=== PATIENT | female | born 1980 | race Caucasian/White ===

== ENCOUNTER 2019-08-04 10:42 | Day surgery (SDC) | payer BC ==
[2019-08-01 17:03] VITALS: BMI 41.3
[2019-08-04 11:25] LABS: BASO % 0.3 % (0-2.0); EOS % 1.6 % (0-4.5); HEMATOCRIT 33.4 % (32.4-45.2); HEMOGLOBIN 11.1 GM/dL (10.7-15.3); LYMPH % 22.5 % (8-40); MCHC 33.1 g/dl (32.0-36.0); MEAN CELL VOLUME 87.5 fl (80-96); MEAN PLT VOLUME 9.3 fl (7.5-11.1); NEUT % 68.6 % (42.8-82.8); PLATELET COUNT 208 K/MM3 (134-434); RBC 3.82 M/mm3 (3.60-5.2); RDW 15.1 % (11.6-15.6); WHITE BLOOD COUNT 6.8 K/mm3 (4.0-10.0)
[2019-08-04] MEDS ORDERED: KETOROLAC TROMETHAMINE 30 MG/1 ML VIAL ONE (12:13)
[2019-08-04] MEDS ORDERED: PROPOFOL 20 ML ONE (12:13)
[2019-08-04] MEDS ORDERED: MIDAZOLAM HCL 2 MG/2 ML SINGLE DOSE VIAL ONE (12:13)
[2019-08-04] MEDS ORDERED: DEXAMETHASONE SOD PHOSPHATE 4 MG/1 ML VIAL ONE (12:13)
[2019-08-04 12:26] LABS: ALBUMIN 2.9 g/dl (3.4-5.0); BILIRUBIN,TOTAL 0.3 mg/dL (0.2-1); BLOOD UREA NITROGEN 8.5 mg/dL (7-18); CREATININE 0.4 mg/dL (0.55-1.3); POTASSIUM 4.4 mmol/L (3.5-5.1); TOT PROT 6.5 g/dl (6.4-8.2)
[2019-08-04] MEDS ORDERED: ACETAMINOPHEN 325 MG TABLET (FP) PO PRN (13:27)
--- NOTE | 2019-08-04 13:27 | HP ---
History & Physical Update - History History: No Change - Physical Physical: No Change - Assessment Assessment: No Change - Plan Plan: No Change (No change in HP)
--- NOTE | 2019-08-04 14:08 | OP ---
Operative Note - Note: Operative Date: 08/04/19 Pre-Operative Diagnosis: incompetent cervix Operation: Cervical cerclage at 17 week Post-Operative Diagnosis: Same as Pre-op Surgeon: Charlotte Vergara Anesthesia: General Estimated Blood Loss (mls): 3 Operative Report Dictated: Yes
[2019-08-04 17:47] VITALS: BP 101/56; PULSE 84; TEMP 98.8
--- NOTE | 2019-08-25 15:49 | OP ---
DATE OF OPERATION: 08/04/2019 PREOPERATIVE DIAGNOSIS: Incompetent cervix at 17 weeks. OPERATION: Cervical cerclage at 17 weeks. POSTOPERATIVE DIAGNOSIS: Incompetent cervix at 17 weeks. SURGEON: Charlotte Vergara MD ANESTHESIA: General. ESTIMATED BLOOD LOSS: mL DESCRIPTION OF PROCEDURE: placed in lithotomy. Prepped usual sterile fashion. A time-out was performed in accordance with hospital regulation. Speculum was placed in the vagina. Anterior lip of the cervix was then grasped with a polyp forceps, 0 Mersilene suture was then placed at 12 o'clock, 9 o'clock, 6 o'clock, and 3 o'clock. The Mersilene tape was then used to tie leaving a slight opening of the cervix. After approximately 5 ties were done, all instruments were then removed. Patient had tolerated procedure well and was taken to recovery room in stable condition. Estimated blood loss was 3 mL. CHARLOTTE VERGARA M.D. SELVIN/[id number]
== END 2019-08-04 18:20 | disposition home or self-care (01) ==
LOC: JASU-SURG 10:42
PROVIDERS: ATTEND Obstetrics & Gynecology
PROC: 0UVC7ZZ Restriction of Cervix, Via Natural or Artificial Opening (ICD-10-PCS; principal; 2019-08-04 13:45)
DX: O34.32 Maternal care for cervical incompetence, second trimester (principal)
CPT/HCPCS: 36415; 80053; 84702; 85025; 86850; 86900; 86901; 94760

== ENCOUNTER 2019-12-26 06:15 | Inpatient (IN) | payer BC ==
[2019-12-26] MEDS ORDERED: CITRIC ACID/SODIUM CITRATE 30 ML UNIT-DOSE CUP PO ONE (06:30)
[2019-12-26] MEDS ORDERED: ELECTROLYTE-148 SOLN 1,000 ML IV SCH (06:30)
[2019-12-26] MEDS ORDERED: ELECTROLYTE-148 SOLN 1,000 ML IV ONE (06:30)
[2019-12-26 07:17] VITALS: BMI 46.3
[2019-12-26] MEDS ORDERED: SODIUM CHLORIDE 0.9% P/F 10 ML VIAL IJ ONE ×2 (07:22→09:01)
[2019-12-26] MEDS ORDERED: PROPOFOL 20 ML ONE ×2 (07:22)
[2019-12-26] MEDS ORDERED: ceFAZolin SODIUM 1 GM VIAL ONE ×2 (07:22→07:23)
[2019-12-26] MEDS ORDERED: ePHEDrine SULFATE 50 MG/1 ML AMPULE ONE (07:22)
[2019-12-26] MEDS ORDERED: OXYTOCIN 10 UNITS/ML VIAL ONE (07:23)
[2019-12-26] MEDS ORDERED: ROCURONIUM BROMIDE 50 MG/5 ML VIAL ONE (07:24)
[2019-12-26] MEDS ORDERED: SUCCINYLCHOLINE CHLORIDE 200 MG/10 ML SYRINGE ONE (07:24)
[2019-12-26 07:25] LABS: BASO % 0.4 % (0-2.0); EOS % 0.5 % (0-4.5); HEMATOCRIT 29.3 % (32.4-45.2); HEMOGLOBIN 9.4 GM/dL (10.7-15.3); LYMPH % 16.1 % (8-40); MCH 25.6 pg (25.7-33.7); MCHC 32.1 g/dl (32.0-36.0); MEAN CELL VOLUME 79.9 fl (80-96); MONO % 6.4 % (3.8-10.2); NEUT % 76.6 % (42.8-82.8); PLATELET COUNT 203 K/MM3 (134-434); RBC 3.66 M/mm3 (3.60-5.2); RDW 15.6 % (11.6-15.6); WHITE BLOOD COUNT 8.3 K/mm3 (4.0-10.0)
[2019-12-26] MEDS ORDERED: morphine SULFATE/PF 0.5 MG/ML (2cc Syringe - QUVA) ONE (07:29)
[2019-12-26] MEDS ORDERED: ONDANSETRON 4 MG/2 ML VIAL IVPUSH PRN (07:38)
[2019-12-26 07:44] LABS: INR 0.97 (0.83-1.09); PROTHROMBIN TIME (PATIENT) 11.5 SEC (9.7-13.0)
[2019-12-26 07:46] LABS: ACTIVATED PTT 21.5 SECONDS (25.2-36.5)
[2019-12-26 07:51] LABS: BLOOD UREA NITROGEN 8.2 mg/dL (7-18); CALCIUM 8.4 mg/dL (8.5-10.1); CREATININE 0.5 mg/dL (0.55-1.3); POTASSIUM 4.1 mmol/L (3.5-5.1)
[2019-12-26] MEDS ORDERED: OXYTOCIN 20 UNITS in 0.9% NS 40 UNIT/2,000 ML INFUS.BAG IV ONE (07:51)
[2019-12-26] MEDS ORDERED: METHYLERGONOVINE MALEATE 0.2 MG/1 ML AMP IM PRN (08:10)
[2019-12-26] MEDS ORDERED: SENNOSIDES/DOCUSATE COMBO (SENNA PLUS) TABLET (UD) PO PRN (08:10)
[2019-12-26] MEDS ORDERED: IBUPROFEN 600 MG TABLET (FP) PO PRN (08:10)
[2019-12-26] MEDS ORDERED: PHENYLEPHRINE HCL 10 MG/1 ML SINGLE DOSE VIAL ONE (09:01)
[2019-12-26] MEDS ORDERED: KETOROLAC TROMETHAMINE 30 MG/1 ML VIAL ONE (09:01)
--- NOTE | 2019-12-26 12:36 | HP ---
Past Medical History - Primary Care Physician PCP:: Charlotte Vergara - Admission Chief Complaint: Previous Section. Voluntary sterilization History of Present Illness: 39 yo EDC EGA 39 weeks with hx of cerclage and previous CS for repeat CS History Source: Patient Limitations to Obtaining History: No Limitations - Past Medical History ...: 5 ...Para: 1 ...Term: 0 ...: 1 ...Spon : 1 ...Induced : 2 ...Multiple Gestation: 0 ...LMP: 04/02/19 ... Weeks Gestation by Dates: 38.2 ...EDC by Dates: 01/07/20 - Past Surgical History Past Surgical History: Yes: (Cervical cerclage) Hx Myomectomy: No Hx Transabdominal Cerclage: No - Smoking History Smoking history: Former smoker Have you smoked in the past 12 months: No If you are a former smoker, when did you quit?: march 2019 - Alcohol/Substance Use Hx Alcohol Use: No History of Substance Use: reports: None - Social History Usual Living Arrangement: Yes: With Spouse Do you think of yourself as: Straight/Heterosexual History of Recent Travel: No Home Medications - Allergies Allergies/Adverse Reactions: Allergies Allergy/AdvReac Type Severity Reaction Status Date / Time No Known Drug Allergies Allergy Verified 06/11/14 12:15 - Home Medications Home Medications: Ambulatory Orders Pnv 29-1 Tablet 1 tab PO DAILY 12/26/19 Ibuprofen [Motrin -] 600 mg PO QID #28 tablet 12/28/19 Review of Systems - Review of Systems Constitutional: reports: No Symptoms Eyes: reports: No Symptoms HENT: reports: No Symptoms Neck: reports: No Symptoms Cardiovascular: reports: No Symptoms Respiratory: reports: No Symptoms Gastrointestinal: reports: No Symptoms Genitourinary: reports: No Symptoms Breasts: reports: No Symptoms Reported Musculoskeletal: reports: No Symptoms Integumentary: reports: No Symptoms Neurological: reports: No Symptoms Endocrine: reports: No Symptoms Hematology/Lymphatic: reports: No Symptoms Psychiatric: reports: No Symptoms Physical Exam - Maternity Vital Signs: Vital Signs Temperature 97.6 F 12/26/19 11:52 Pulse Rate 66 12/26/19 11:52 Respiratory Rate 12/26/19 12:17 Blood Pressure 114/71 12/26/19 11:52 O2 Sat by Pulse Oximetry (%) 100 12/26/19 11:15 Constitutional: Yes: Well Nourished, No Distress, Obese Cardiovascular: Yes: WNL Lungs: Clear to auscultation Breast(s): Yes: WNL - Abdominal Exam/OB Fundal Height: 40 Number of Fetuses: Single Presentation: Vertex Contractions: No Category: I Decelerations: None - Vaginal Exam/OB Dilatation (cm): closed Effacement (%): long Amniotic Membrane Status: Intact Presentation: Vertex/Position Station: -2 - Physical Exam Musculoskeletal: Yes: WNL Extremities: Yes: WNL - Labs Lab Results: CBC, BMP 12/26/19 07:05 12/26/19 07:05 Hemorrhage Risk Assessment - Risk Factors Medium Risk Factors: Yes: Prior , uterine surgery,or multiple laparotomies Risk Score: 1 Risk Level: Medium Risk Problem List - Problems (1) Previous delivery, antepartum Problems reviewed: Yes Code(s): O34.219 - MATERNAL CARE FOR UNSP TYPE SCAR FROM PREVIOUS DEL (2) Obesity affecting in third trimester Problems reviewed: Yes Code(s): O99.213 - OBESITY COMPLICATING , THIRD TRIMESTER (3) Cervical incompetence affecting management of in third trimester, antepartum Problems reviewed: Yes Code(s): O34.33 - MATERNAL CARE FOR CERVICAL INCOMPETENCE, THIRD TRIMESTER (4) 39 weeks gestation of Problems reviewed: Yes Code(s): Z3A.39 - 39 WEEKS GESTATION OF Assessment/Plan IUP at 39 week previous Section incompetent cervix Voluntary Sterilization Plan repeat Section bilateral salpingectomy removal of cerclage
[2019-12-26] MEDS: IBUPROFEN 800 MG/8 ML IJ IVPB PRN (15:59)
[2019-12-27] MEDS: IBUPROFEN 800 MG/8 ML IJ IVPB PRN (02:07)
[2019-12-27] MEDS ORDERED: BISACODYL 10 MG SUPP.RECT RC PRN (08:10)
--- NOTE | 2019-12-27 09:10 | OP ---
Operative Note - Note: Operative Date: 12/26/19 Pre-Operative Diagnosis: Previous Section. Voluntary sterilization. cervical incompence. iup at 39 weeks Operation: Repeat low Transverse Section. Bilateral salpingectomy. Cerclage removal. IUP at 39 week Findings: Live male infant Post-Operative Diagnosis: Same as Pre-op Surgeon: Charlotte Vergara Restaurant Kitchen And Service Manager: Antonio Ford Anesthesia: Spinal Estimated Blood Loss (mls): 600 Operative Report Dictated: Yes
[2019-12-27 09:37] LABS: BASO % 0.4 % (0-2.0); EOS % 0.9 % (0-4.5); HEMATOCRIT 30.4 % (32.4-45.2); HEMOGLOBIN 9.5 GM/dL (10.7-15.3); LYMPH % 16.1 % (8-40); MCH 25.4 pg (25.7-33.7); MCHC 31.3 g/dl (32.0-36.0); MEAN PLT VOLUME 10.1 fl (7.5-11.1); MONO % 5.9 % (3.8-10.2); NEUT % 76.7 % (42.8-82.8); PLATELET COUNT 188 K/MM3 (134-434); RBC 3.75 M/mm3 (3.60-5.2); RDW 15.7 % (11.6-15.6); WHITE BLOOD COUNT 8.6 K/mm3 (4.0-10.0)
[2019-12-27] MEDS ORDERED: DIPHTH,PERTUSS(ACELL),TET 0.5 ML DISP.SYRIN IM ONE (10:00)
[2019-12-27] MEDS: PRENATAL VITAMINS W/ FOLIC ACID TABLET (FP) PO SCH (10:56)
[2019-12-27] MEDS: SIMETHICONE 80 MG TAB.CHEW (FP) PO PRN ×3 (12:30→21:37)
[2019-12-27] MEDS: oxyCODONE HCL 5 MG TABLET PO PRN ×3 (12:30→21:38)
[2019-12-27] MEDS: ACETAMINOPHEN 325 MG TABLET (FP) PO PRN (16:53)
[2019-12-27] MEDS: OXYTOCIN 20 UNITS in 0.9% NS 20 UNIT/1,000 ML INFUS.BAG IV SCH (18:26)
--- NOTE | 2019-12-27 21:32 | PN ---
Progress Note (short form) - Note Progress Note: Anesthesia Post Op Note Pt s/p c/section under spinal Pt awake alert denies n/v, no puritis, ambulating well, no urinary retention reports good pain control VSS no apparent anesthesia complications Kassie New.
[2019-12-27] MEDS: IBUPROFEN 600 MG TABLET (FP) PO PRN (21:38)
--- NOTE | 2019-12-27 22:24 | PN ---
Progress Note (SOAP) - Subjective Chief Complaint: Pt doing well - Current Medications Current Medications: Active Medications Acetaminophen (Tylenol -) 650 mg PO Q4H PRN PRN Reason: PAIN LEVEL 1-5 Last Admin: 12/27/19 16:53 Dose: 650 mg Bisacodyl (Dulcolax Suppository -) 10 mg RC PRN PRN PRN Reason: CONSTIPATION Diphenhydramine HCl (Benadryl Injection -) 25 mg IVPUSH Q4H PRN PRN Reason: Pruritis Last Admin: 12/26/19 15:55 Dose: 25 mg Oxytocin/Sodium Chloride (Normal Saline+20 Units Oxytocin -) 20 unit in 1,000 mls @ 125 mls/hr IV ASDIR JUSTIN Last Admin: 12/27/19 18:26 Dose: Not Given Ibuprofen (Motrin -) 600 mg PO Q4H PRN PRN Reason: PAIN LEVEL 1-5 Last Admin: 12/27/19 21:38 Dose: 600 mg Ibuprofen (Caldolor Injection -) 800 mg IVPB Q8H PRN PRN Reason: FEVER Last Admin: 12/27/19 02:07 Dose: 800 mg Methylergonovine Maleate (Methergine Injection -) 0.2 mg IM Q4H PRN PRN Reason: Excessive Bleeding (L&D) Ondansetron HCl (Zofran Injection) 4 mg IVPUSH Q4H PRN PRN Reason: NAUSEA Oxycodone HCl (Roxicodone -) 5 mg PO Q4H PRN PRN Reason: PAIN LEVEL 4 - 6 Last Admin: 12/27/19 21:38 Dose: 5 mg Oxycodone HCl (Roxicodone -) 10 mg PO Q4H PRN PRN Reason: PAIN LEVEL 7 - 10 Last Admin: 12/27/19 16:42 Dose: 10 mg Multivit/Folic Acid/Iron ( Vitamins (Sjr) -) 1 tab PO DAILY JUSTIN Last Admin: 12/27/19 10:56 Dose: 1 tab Senna/Docusate Sodium (Pericolace -) 2 tablet PO HS PRN PRN Reason: CONSTIPATION Last Admin: 12/27/19 21:41 Dose: 2 tablet Simethicone (Mylicon -) 80 mg PO Q4H PRN PRN Reason: GAS Last Admin: 12/27/19 21:37 Dose: 80 mg - Objective Vital Signs: Vital Signs Temperature 97.5 F L 12/27/19 20:29 Pulse Rate 95 H 12/27/19 20:29 Respiratory Rate 20 12/27/19 20:29 Blood Pressure 109/58 L 12/27/19 20:29 O2 Sat by Pulse Oximetry (%) 100 12/26/19 11:15 Constitutional: Yes: Well Nourished, No Distress ....Post : Yes: Uterus firm, Uterus non-tender Musculoskeletal: Yes: WNL Extremities: Yes: WNL Edema: No Wound/Incision: Yes: Clean/Dry, Steri Strips Neurological: Yes: WNL, Alert, Oriented Labs Lab Results: CBCD WBC 8.6 K/mm3 (4.0-10.0) 12/27/19 08:15 RBC 3.75 M/mm3 (3.60-5.2) 12/27/19 08:15 Hgb 9.5 GM/dL (10.7-15.3) L 12/27/19 08:15 Hct 30.4 % (32.4-45.2) L 12/27/19 08:15 MCV 81.0 fl (80-96) 12/27/19 08:15 MCHC 31.3 g/dl (32.0-36.0) L 12/27/19 08:15 RDW 15.7 % (11.6-15.6) H 12/27/19 08:15 Plt Count 188 K/MM3 (134-434) 12/27/19 08:15 MPV 10.1 fl (7.5-11.1) 12/27/19 08:15 CMP Sodium 138 mmol/L (136-145) 12/26/19 07:05 Potassium 4.1 mmol/L (3.5-5.1) 12/26/19 07:05 Chloride 108 mmol/L (98-107) H 12/26/19 07:05 Carbon Dioxide 24 mmol/L (21-32) 12/26/19 07:05 Anion Gap 7 MMOL/L (8-16) L 12/26/19 07:05 BUN 8.2 mg/dL (7-18) 12/26/19 07:05 Creatinine 0.5 mg/dL (0.55-1.3) L 12/26/19 07:05 Random Glucose 77 mg/dL (74-106) 12/26/19 07:05 Calcium 8.4 mg/dL (8.5-10.1) L 12/26/19 07:05 Problem List - Problems (1) Previous delivery, antepartum Problems reviewed: Yes Code(s): O34.219 - MATERNAL CARE FOR UNSP TYPE SCAR FROM PREVIOUS DEL Assessment/Plan POD 1 Plan continue present management
[2019-12-28] MEDS: IBUPROFEN 600 MG TABLET (FP) PO PRN ×2 (05:33→15:08)
[2019-12-28] MEDS: oxyCODONE HCL 5 MG TABLET PO PRN (05:33)
[2019-12-28] MEDS: SIMETHICONE 80 MG TAB.CHEW (FP) PO PRN ×2 (05:33→15:08)
[2019-12-28] MEDS: PRENATAL VITAMINS W/ FOLIC ACID TABLET (FP) PO SCH (10:22)
[2019-12-28] MEDS: OXYTOCIN 20 UNITS in 0.9% NS 20 UNIT/1,000 ML INFUS.BAG IV SCH (15:02)
[2019-12-28] MEDS: ACETAMINOPHEN 325 MG TABLET (FP) PO PRN (15:08)
--- NOTE | 2019-12-28 23:53 | PN ---
Progress Note (SOAP) - Subjective Chief Complaint: Pt doing well - Current Medications Current Medications: Active Medications Acetaminophen (Tylenol -) 650 mg PO Q4H PRN PRN Reason: PAIN LEVEL 1-5 Last Admin: 12/28/19 15:08 Dose: 650 mg Bisacodyl (Dulcolax Suppository -) 10 mg RC PRN PRN PRN Reason: CONSTIPATION Diphenhydramine HCl (Benadryl Injection -) 25 mg IVPUSH Q4H PRN PRN Reason: Pruritis Last Admin: 12/26/19 15:55 Dose: 25 mg Oxytocin/Sodium Chloride (Normal Saline+20 Units Oxytocin -) 20 unit in 1,000 mls @ 125 mls/hr IV ASDIR JUSTIN Last Admin: 12/28/19 15:02 Dose: Not Given Ibuprofen (Motrin -) 600 mg PO Q4H PRN PRN Reason: PAIN LEVEL 1-5 Last Admin: 12/28/19 15:08 Dose: 600 mg Ibuprofen (Caldolor Injection -) 800 mg IVPB Q8H PRN PRN Reason: FEVER Last Admin: 12/27/19 02:07 Dose: 800 mg Methylergonovine Maleate (Methergine Injection -) 0.2 mg IM Q4H PRN PRN Reason: Excessive Bleeding (L&D) Ondansetron HCl (Zofran Injection) 4 mg IVPUSH Q4H PRN PRN Reason: NAUSEA Oxycodone HCl (Roxicodone -) 5 mg PO Q4H PRN PRN Reason: PAIN LEVEL 4 - 6 Last Admin: 12/28/19 05:33 Dose: 5 mg Oxycodone HCl (Roxicodone -) 10 mg PO Q4H PRN PRN Reason: PAIN LEVEL 7 - 10 Last Admin: 12/27/19 16:42 Dose: 10 mg Multivit/Folic Acid/Iron ( Vitamins (Sjr) -) 1 tab PO DAILY JUSTIN Last Admin: 12/28/19 10:22 Dose: 1 tab Senna/Docusate Sodium (Pericolace -) 2 tablet PO HS PRN PRN Reason: CONSTIPATION Last Admin: 12/27/19 21:41 Dose: 2 tablet Simethicone (Mylicon -) 80 mg PO Q4H PRN PRN Reason: GAS Last Admin: 12/28/19 15:08 Dose: 80 mg - Objective Vital Signs: Vital Signs Temperature 98.0 F 12/28/19 20:59 Pulse Rate 91 H 12/28/19 20:59 Respiratory Rate 20 12/28/19 20:59 Blood Pressure 123/67 12/28/19 20:59 O2 Sat by Pulse Oximetry (%) 100 12/26/19 11:15 Constitutional: Yes: Well Nourished, No Distress Respiratory: Yes: WNL ....Post : Yes: Uterus firm, Uterus non-tender Breast(s): Yes: WNL Musculoskeletal: Yes: WNL Extremities: Yes: WNL Peripheral Pulses WNL: No Edema: No Wound/Incision: Yes: Steri Strips, Open to air Neurological: Yes: WNL, Alert, Oriented Labs Lab Results: CBCD WBC 8.6 K/mm3 (4.0-10.0) 12/27/19 08:15 RBC 3.75 M/mm3 (3.60-5.2) 12/27/19 08:15 Hgb 9.5 GM/dL (10.7-15.3) L 12/27/19 08:15 Hct 30.4 % (32.4-45.2) L 12/27/19 08:15 MCV 81.0 fl (80-96) 12/27/19 08:15 MCHC 31.3 g/dl (32.0-36.0) L 12/27/19 08:15 RDW 15.7 % (11.6-15.6) H 12/27/19 08:15 Plt Count 188 K/MM3 (134-434) 12/27/19 08:15 MPV 10.1 fl (7.5-11.1) 12/27/19 08:15 CMP Sodium 138 mmol/L (136-145) 12/26/19 07:05 Potassium 4.1 mmol/L (3.5-5.1) 12/26/19 07:05 Chloride 108 mmol/L (98-107) H 12/26/19 07:05 Carbon Dioxide 24 mmol/L (21-32) 12/26/19 07:05 Anion Gap 7 MMOL/L (8-16) L 12/26/19 07:05 BUN 8.2 mg/dL (7-18) 12/26/19 07:05 Creatinine 0.5 mg/dL (0.55-1.3) L 12/26/19 07:05 Random Glucose 77 mg/dL (74-106) 12/26/19 07:05 Calcium 8.4 mg/dL (8.5-10.1) L 12/26/19 07:05 Problem List - Problems (1) Previous delivery, antepartum Problems reviewed: Yes Code(s): O34.219 - MATERNAL CARE FOR UNSP TYPE SCAR FROM PREVIOUS DEL Assessment/Plan POD 2 Plan continue present management DC home in Am
[2019-12-29] MEDS: oxyCODONE HCL 5 MG TABLET PO PRN ×3 (08:20→21:50)
[2019-12-29] MEDS: ACETAMINOPHEN 325 MG TABLET (FP) PO PRN ×3 (08:21→21:50)
[2019-12-29] MEDS: SIMETHICONE 80 MG TAB.CHEW (FP) PO PRN ×3 (08:21→21:50)
[2019-12-29 08:57] LABS: BASO % 0.4 % (0-2.0); HEMATOCRIT 30.3 % (32.4-45.2); HEMOGLOBIN 9.5 GM/dL (10.7-15.3); LYMPH % 17.1 % (8-40); MCH 25.3 pg (25.7-33.7); MCHC 31.5 g/dl (32.0-36.0); MEAN CELL VOLUME 80.3 fl (80-96); MEAN PLT VOLUME 9.6 fl (7.5-11.1); MONO % 4.4 % (3.8-10.2); NEUT % 76.1 % (42.8-82.8); PLATELET COUNT 216 K/MM3 (134-434); RBC 3.78 M/mm3 (3.60-5.2); RDW 16.1 % (11.6-15.6)
[2019-12-29] MEDS: PRENATAL VITAMINS W/ FOLIC ACID TABLET (FP) PO SCH (09:19)
--- NOTE | 2019-12-29 11:04 | DS ---
Physical Exam-HAULAGE BOSS Vital Signs: Vital Signs Temperature 97.9 F 12/29/19 09:00 Pulse Rate 102 H 12/29/19 09:00 Respiratory Rate 12/29/19 09:00 Blood Pressure 119/58 L 12/29/19 09:00 O2 Sat by Pulse Oximetry (%) 100 12/26/19 11:15 Constitutional: Yes: Well Nourished, No Distress, Obese ....Post : Yes: Uterus firm, Uterus non-tender Breast(s): Yes: WNL Musculoskeletal: Yes: WNL Extremities: Yes: WNL Edema: No Wound/Incision: Yes: Clean/Dry, Well Approximated Neurological: Yes: WNL, Alert, Oriented Labs: CBC, BMP 12/29/19 08:18 12/26/19 07:05 Delivery - Delivery Section: Low Flap Transverse Type of Anesthesia: Spinal Episiotomy/Laceration: None EBL (cc): 600 Delivery, Single - Stages of Labor Date of Delivery: 12/26/19 Time of Delivery: 08:46 Time Placenta Delivered: 08:47 Placenta: Yes: Spontaneous - Condition of Infant Prepared Foods Supervisor/Oncology Nurse Navigator Present: Yes Name: Coleen Linares Infant Gender: Male Weight: 8 lb 2 oz Position: OT Total Hours ROM (Hrs/Mins): 2mins - 1 Minute Total Score: 8 5 Minutes Total Score: 8 - [place] Feeding Plan Initial Plan: Exclusive throughout hospitalization Discharge Summary Problems reviewed: Yes Reason For Visit: SCHEDULED Current Active Problems Previous delivery, antepartum (Acute) Procedures: Principal: Repeat low transverse Section Hospital Course: Unremarkable Condition: Good - Instructions Diet, Activity, Other Instructions: Physical activity Resume your normal everyday activity as tolerated no heavy lifting or exercise until seen by your surgeon. You may walk unlimited jessie of and climb stairs. You may resume driving the car when you feel safe and comfortable behind the wheel. No sexual activity as instructed. Wound care If you have a bandage, leave it on, and keep dry for 48-72 hours. After that time discard the outer bandage. If they are tapes on the skin under the out of bandage leave them in place. They will peel off in the next 7 to 10 days. Do Not Peel them off. You may shower the day after surgery. If there are tapes present on the skin, you may shower over them. Diet There are no dietary restrictions. Eat healthy, high-fiber foods. Drink 6 to 8 glasses of liquid each day. This will assist in keeping your bowels are regular. Pain management You may take Tylenol or acetaminophen or Ibuprofen (for example, Motrin, Advil etc.) from my pain prescription medication is ordered should be taken as prescribed for moderate to severe pain. Call MD for any of the following: Severe pain not relieved by medication Fever of 101 or higher Excessive bleeding or drainage on dressing Inability to urinate Referrals: Charlotte Vergara MD [Staff Physician] - Disposition: HOME - Home Medications Comprehensive Discharge Medication List: Ambulatory Orders Pnv 29-1 Tablet 1 tab PO DAILY 12/26/19 Ibuprofen [Motrin -] 600 mg PO QID #28 tablet 12/28/19
[2019-12-30] MEDS: ACETAMINOPHEN 325 MG TABLET (FP) PO PRN (04:14)
[2019-12-30] MEDS: oxyCODONE HCL 5 MG TABLET PO PRN (04:15)
[2019-12-30] MEDS: PRENATAL VITAMINS W/ FOLIC ACID TABLET (FP) PO SCH (10:57)
[2019-12-30 11:07] VITALS: BP 136/80; PULSE 62; TEMP 98.2
--- NOTE | 2019-12-31 17:34 | PATH ---
Surgical Pathology Report Patient Name: SERA LE Med. Rec. #: [id number] /Age/Gender: 1980 (Age: 39) / F Account: [id number] Location: [facility] OBS/AIR CONDITIONING EQUIPMENT MECHANIC Taken: 12/26/2019 Received: 12/29/2019 Reported: 12/31/2019 Physicians: Charlotte Vergara M.D. Specimen(s) Received A: PLACENTA B: RIGHT PORTION OF FALLOPIAN TUBE C: LEFT PORTION OF FALLOPIAN TUBE Clinical History , 05/2014, bariatric surgery 2014 39 weeks, incompetent cervix Final Diagnosis A. PLACENTA: THIRD TRIMESTER PLACENTA. TRIVASCULAR CORD. MEMBRANES WITH NO DIAGNOSTIC ABNORMALITIES. B. RIGHT PORTION OF FALLOPIAN TUBE, RESECTION: PORTION OF FALLOPIAN TUBE WITH NO SIGNIFICANT PATHOLOGIC CHANGE. COMPLETE CROSS SECTION OF THE FALLOPIAN TUBE LUMEN IDENTIFIED. C. LEFT PORTION OF FALLOPIAN TUBE, RESECTION: PORTION OF FALLOPIAN TUBE WITH NO SIGNIFICANT PATHOLOGIC CHANGE. COMPLETE CROSS SECTION OF THE FALLOPIAN TUBE LUMEN IDENTIFIED. Electronically Signed Gin Sarabia M.D. Gross Description A. The specimen is received fresh labeled placenta and is a 464 gram, 19.0 x 14.0 x 2.0 cm. placenta with attached membranes and umbilical cord. The attached membranes are gonzales, translucent with focal opacities and insert marginally. The umbilical cord measures 21 cm. in length and averages 1 cm. in diameter. The cord inserts eccentrically, 4.5 cm. to the nearest margin. No true knots or strictures are identified. Cut surface of the umbilical cord reveals 3 vessels. The surface is girard-blue with minimal fibrin deposition and appropriate caliber vessels. The maternal surface is red-brown with focal defects. Sectioning reveals red-brown, spongy parenchyma. No lesions are identified. Retail Department Manager sections are submitted in three cassettes as follows: 1- membrane rolls and umbilical cord; 2-3- full thickness sections of placenta. B. Received in formalin labeled "right portion of fallopian tube," is a 7 cm in length fimbriated fallopian tube. The outer surface is gonzales-barrios and smooth. Sectioning reveals an unremarkable lumen. Retail Department Manager sections are submitted in 2 cassettes as follows: 1-fimbria; 2-cross sections of fallopian tube. C. Received in formalin labeled "left portion of fallopian tube," is a 6 cm in length fimbriated fallopian tube. The outer surface is girard purple and smooth. Sectioning reveals an unremarkable lumen. Retail Department Manager sections are submitted in 2 cassettes as follows: 1-fimbria; 2-cross sections of fallopian tube. 12/30/2019 [facility]/30/2019
--- NOTE | 2020-01-08 07:14 | OP ---
DATE OF OPERATION: 12/26/2019 PREOPERATIVE DIAGNOSES: 1. Previous section. 2. Voluntary sterilization. 3. Cervical incompetence. 4. Intrauterine at 39 weeks. OPERATION: Repeat low-transverse section, bilateral salpingectomy and cerclage removal. FINAL DIAGNOSIS: A live male infant. SURGEON: Jarrod Vergara MD COSTUME MAKER: YEYO Tay (MD unavailable) ESTIMATED BLOOD LOSS: 600 mL. DESCRIPTION OF PROCEDURE: The patient was taken to the operating room, placed in the supine position, prepped and draped in the usual sterile fashion. A time-out was performed in accordance with hospital regulation. A Pfannenstiel skin incision was made through the patient's previous scar. Cautery was then used to go through the layers of the abdominal wall to the level of the fascia. The fascia was cut in the midline and cautery was then used to open the fascia in a smiling fashion. Kendall was then used to bluntly and sharply dissect the rectus muscle off the fascia. The muscle was splint in the midline. The peritoneal cavity was then entered and carried upward and downward. The vesicouterine reflection was then entered, and the bladder was bluntly dissected out of the operative field. A scalpel was then used to make a low transverse uterine incision. The incision was carried upwards using bandage scissors. A live male infant was delivered in OP position. Nose and mouth suction was performed. The shoulders were delivered without difficulty. The cord was clamped and cut. Cord blood obtained. Cord pH obtained. The infant was handed to block operator. The placenta was manually extracted from the uterus. The uterus was exteriorized and cleaned with clean lap pads. The uterine incision was then closed using 0 Biosyn suture, the first layer continuous interlocking and the second layer imbricating the first layer. Hemostasis was achieved. Tubes and ovaries were noted to be normal. LigaSure was then used to bilaterally coagulate and cut the right and left fallopian tubes. Tubes were submitted to pathology. Hemostasis was achieved. The uterus was interiorized. The abdominal cavity was cleaned with clean lap pads. Peritoneal sweep was done. The peritoneum was then closed using 0 Biosyn suture. The muscle was approximated in the midline using 0 Vicryl suture. The fascia was then closed using 0 Vicryl suture in 2 parts. The skin was then closed using 3-0 Vicryl in subcuticular fashion. The wound was washed and dressed. The patient tolerated the procedure well. Estimated blood loss was 600 mL. JARROD VERGARA M.D. [id number]
== END 2019-12-30 15:00 | disposition home or self-care (01) | DRG 783 ==
LOC: JLDR 06:15 → J3W 11:27
PROVIDERS: ADMIT Obstetrics & Gynecology; ATTEND Obstetrics & Gynecology
PROC: 10D00Z1 Extraction of Products of Conception, Low, Open Approach (ICD-10-PCS; principal; 2019-12-26)
PROC: 0UB70ZZ Excision of Bilateral Fallopian Tubes, Open Approach (ICD-10-PCS; 2019-12-26)
PROC: 0UCC0ZZ Extirpation of Matter from Cervix, Open Approach (ICD-10-PCS; 2019-12-26)
DX: O34.211 Maternal care for low transverse scar from previous cesarean delivery (principal); O34.33 Maternal care for cervical incompetence, third trimester; N85.8 Other specified noninflammatory disorders of uterus; O99.214 Obesity complicating childbirth; Z3A.39 39 weeks gestation of pregnancy; Z30.2 Encounter for sterilization; Z37.0 Single live birth
CPT/HCPCS: 36415; 36600; 80048; 82803; 85025; 85610; 85730; 86593; 86850; 86900; 86901; 87389; 88302-TC; 88307-TC; 90715